=== PATIENT | male | born 1995 ===

== ENCOUNTER 2024-05-29 16:03 | Emergency (ER) | payer OTHER ==
[~2024-05-29] VITALS: Ht 162.6 cm; Wt 81.0 kg
[2024-05-29 16:06] VITALS: TEMP 98.2
[2024-05-29 16:35] VITALS: BP 115/76; PULSE 68; RESP 18; O2SAT 100
[2024-05-29] MEDS: PERTUSS(ACELL),DIPH,TET/PF 0.5 ML SYRINGE [ADULT] IM. ONE (18:04)
== END 2024-05-29 18:08 | disposition home or self-care (01) ==
LOC: EMS 16:03
DX: S61.213A Laceration without foreign body of left middle finger without damage to nail, initial encounter (principal); Z98.890 Other specified postprocedural states; W27.2XXA Contact with scissors, initial encounter; Y93.89 Activity, other specified; Y92.89 Other specified places as the place of occurrence of the external cause; Y99.8 Other external cause status
CPT/HCPCS: 12001; 90471; 90715; 99283